=== PATIENT | female | born 1965 | race Caucasian/White ===

== ENCOUNTER 2021-11-18 12:55 | Emergency (ER) | payer SELFPAY ==
[~2021-11-18] VITALS: Ht 168 cm; Wt 61.0 kg
[2021-11-18 13:15] LABS: BASOPHILS # (AUTO) 0.1 10^3/uL (0.0-0.1); BASOPHILS % (AUTO) 1 % (0-10); EOSINOPHILS % (AUTO) 0 % (0-10); HEMATOCRIT 42 % (35-52); HEMOGLOBIN 14.8 g/dL (11.5-16.0); LYMPHOCYTES # (AUTO) 2.7 10^3/uL (1.0-4.0); LYMPHOCYTES % (AUTO) 26 % (12-44); MEAN CORPUSCULAR HEMOGLOBIN 31 pg (25-34); MEAN CORPUSCULAR HGB CONC 35 g/dL (32-36); MEAN CORPUSCULAR VOLUME 89 fL (80-99); MEAN PLATELET VOLUME 9.6 fL (9.0-12.2); MONOCYTES # (AUTO) 0.4 10^3/uL (0.0-1.0); MONOCYTES % (AUTO) 4 % (0-12); NEUTROPHILS # (AUTO) 7.3 10^3/uL (1.8-7.8); NEUTROPHILS % (AUTO) 69 % (42-75); PLATELET COUNT 211 10^3/uL (130-400); WHITE BLOOD COUNT 10.6 10^3/uL (4.3-11.0)
[2021-11-18 13:33] LABS: ALBUMIN 3.9 GM/DL (3.2-4.5); INR 0.9 (0.8-1.4); POTASSIUM 3.8 MMOL/L (3.6-5.0); PROTHROMBIN TIME PATIENT 12.1 SEC (12.2-14.7)
[2021-11-18 13:34] LABS: CALCIUM 9.1 MG/DL (8.5-10.1)
[2021-11-18 13:35] LABS: TOTAL PROTEIN 6.7 GM/DL (6.4-8.2)
[2021-11-18 13:37] LABS: BILIRUBIN,TOTAL 0.4 MG/DL (0.1-1.0)
[2021-11-18 13:39] LABS: CREATININE SERUM 0.78 MG/DL (0.60-1.30)
[2021-11-18 13:42] LABS: MAGNESIUM 2.1 MG/DL (1.6-2.4)
--- NOTE | 2021-11-18 13:47 | Diagnostic Imaging Report ---
INDICATION: Chest pain. Frontal chest obtained at 1:30 p.m. FINDINGS: Heart and mediastinal silhouette are normal. There is hyperinflation compatible with COPD with chronic appearing increased basilar markings. There are extensive bullous changes in both apices with surgical sutures over the right upper lobe medially. There is no acute consolidation or pleural fluid or pneumothorax. IMPRESSION: Severe COPD changes with severe biapical bullous disease. No acute process. Dictated by: Dictated on workstation # [id number]
[2021-11-18] MEDS ORDERED: KETOROLAC 30 MG/ML VIAL IVP ONE (14:00)
[2021-11-18] MEDS ORDERED: ASPIRIN 81 MG CHEW (CHILDREN'S ASA) PO ONE (14:00)
[2021-11-18] MEDS ORDERED: PROMETHAZINE INJ 25 MG/ML (PHENERGAN) AMP IVP ONE (14:00)
[2021-11-18] MEDS ORDERED: ONDANSETRON 4 MG/2 ML (SDV) Z0FRAN IVP ONE (14:00)
[2021-11-18] MEDS ORDERED: LACTATED RINGERS 1,000 ML IV ONE (14:00)
[2021-11-18] MEDS ORDERED: MECLIZINE 25 MG (ANTIVERT) TAB PO ONE (15:45)
[2021-11-18] MEDS ORDERED: DIAZEPAM INJ 10 MG/2 ML (VALIUM) SYR IVP ONE (18:30)
[2021-11-18] MEDS ORDERED: DIAZ5TAB PO (19:23)
[2021-11-18] MEDS ORDERED: ONDA4TAB11 SL (19:23)
--- NOTE | 2021-11-18 19:23 | ED Chest Pain ---
General Chief Complaint: Chest Pain Stated Complaint: CHEST PAIN Nursing Triage Note: PT TO RM 2 WITH WC WITH C/O CP SINCE 0600 THIS MORNING AND DIZZINESS SINCE 0300 THIS MORNING. PT STATES THE PAIN COMES AND GOES AND FEELS LIKE SOMEONE IS SITTING ON HER Source: patient Exam Limitations: no limitations History of Present Illness Date Seen by Provider: Nov 18, 2021 Allergies and Home Medications Allergies Coded Allergies: Penicillins (Verified Allergy, Unknown, 11/18/21) morphine (Verified Allergy, Unknown, 11/18/21) Past Gkbeady-Jndfmh-Exwjsv Hx Patient Social History Tobacco Use?: No Use of E-Cig and/or Vaping dev: No Substance use?: No Alcohol Use?: No Pt feels they are or have been: No Immunizations Up To Date Influenza Vaccine Up-to-Date: No; Not Current Physical Exam Vital Signs Vital Signs - First Documented 11/18/21 12:58 Temp 35.7 Pulse 89 Resp 18 B/P (MAP) 149/95 (113) Capillary Refill : Height, Weight, BMI Height: '" Weight: lbs. oz. kg; 21.00 BMI Method: Progress/Results/Core Measures Results/Orders Lab Results Laboratory Tests Test 11/18/21 13:03 11/18/21 15:05 Range/Units White Blood Count 10.6 4.3-11.0 10^3/uL Red Blood Count 4.72 3.80-5.11 10^6/uL Hemoglobin 14.8 11.5-16.0 g/dL Hematocrit 42 35-52 % Mean Corpuscular Volume 89 80-99 fL Mean Corpuscular Hemoglobin 31 25-34 pg Mean Corpuscular Hemoglobin Concent 35 32-36 g/dL Red Cell Distribution Width 12.1 10.0-14.5 % Platelet Count 211 130-400 10^3/uL Mean Platelet Volume 9.6 9.0-12.2 fL Immature Granulocyte % (Auto) 0 % Neutrophils (%) (Auto) 69 42-75 % Lymphocytes (%) (Auto) 26 12-44 % Monocytes (%) (Auto) 4 0-12 % Eosinophils (%) (Auto) 0 0-10 % Basophils (%) (Auto) 1 0-10 % Neutrophils # (Auto) 7.3 1.8-7.8 10^3/uL Lymphocytes # (Auto) 2.7 1.0-4.0 10^3/uL Monocytes # (Auto) 0.4 0.0-1.0 10^3/uL Eosinophils # (Auto) 0.0 0.0-0.3 10^3/uL Basophils # (Auto) 0.1 0.0-0.1 10^3/uL Immature Granulocyte # (Auto) 0.0 0.0-0.1 10^3/uL Prothrombin Time 12.1 L 12.2-14.7 SEC INR Comment 0.9 0.8-1.4 Activated Partial Thromboplast Time 32 24-35 SEC Sodium Level 143 135-145 MMOL/L Potassium Level 3.8 3.6-5.0 MMOL/L Chloride Level 110 H 98-107 MMOL/L Carbon Dioxide Level 23 21-32 MMOL/L Anion Gap 10 5-14 MMOL/L Blood Urea Nitrogen 16 7-18 MG/DL Creatinine 0.78 0.60-1.30 MG/DL Estimat Glomerular Filtration Rate 89 BUN/Creatinine Ratio 21 Glucose Level 121 H 70-105 MG/DL Calcium Level 9.1 8.5-10.1 MG/DL Corrected Calcium 9.2 8.5-10.1 MG/DL Magnesium Level 2.1 1.6-2.4 MG/DL Total Bilirubin 0.4 0.1-1.0 MG/DL Aspartate Amino Transf (AST/SGOT) 17 5-34 U/L Alanine Aminotransferase (ALT/SGPT) 18 0-55 U/L Alkaline Phosphatase 74 40-136 U/L Myoglobin 22.2 10.0-92.0 NG/ML Troponin I < 0.028 < 0.028 <0.028 NG/ML Total Protein 6.7 6.4-8.2 GM/DL Albumin 3.9 3.2-4.5 GM/DL My Orders Orders - OLENA PERRY MD Cbc With Automated Diff (11/18/21 12:57) Magnesium (11/18/21 12:57) Chest 1 View, Ap/Pa Only (11/18/21 12:57) Ekg Tracing (11/18/21 12:57) Comprehensive Metabolic Panel (11/18/21 12:57) Myoglobin Serum (11/18/21 12:57) Protime With Inr (11/18/21 12:57) Partial Thromboplastin Time (11/18/21 12:57) O2 (11/18/21 12:57) Monitor-Rhythm Ecg Trace Only (11/18/21 12:57) Ed Iv/Invasive Line Start (11/18/21 12:57) Troponin I Jessica (11/18/21 12:57) Lipid Panel (11/19/21 06:00) Aspirin Chewable Tablet (Baby Aspirin Ch (11/18/21 14:00) Ondansetron Injection (Zofran Injectio (11/18/21 14:00) Promethazine Injection (Phenergan Injec (11/18/21 14:00) Lactated Ringers (Lr 1000 Ml Iv Solution (11/18/21 14:00) Ketorolac Injection (Toradol Injection) (11/18/21 14:00) Troponin I Jessica (11/18/21 15:05) Meclizine Tablet (Antivert Tablet) (11/18/21 15:45) Diazepam Injection (Valium Injection) (11/18/21 18:30) Medications Given in ED Current Medications Medications Dose Ordered Sig/Jessica Route Start Time Stop Time Status Last Admin Dose Admin Aspirin 324 mg ONCE ONCE PO 11/18/21 14:00 11/18/21 14:02 DC 11/18/21 14:15 324 MG Diazepam 5 mg ONCE ONCE IVP 11/18/21 18:30 11/18/21 18:31 DC 11/18/21 18:29 5 MG Ketorolac Tromethamine 15 mg ONCE ONCE IVP 11/18/21 14:00 11/18/21 14:02 DC 11/18/21 14:15 15 MG Lactated Ringer's 1,000 ml @ 0 mls/hr Q0M ONCE IV 11/18/21 14:00 11/18/21 14:02 DC 11/18/21 14:15 1,000 MLS/HR Meclizine HCl 25 mg ONCE ONCE PO 11/18/21 15:45 11/18/21 15:46 DC 11/18/21 15:49 25 MG Ondansetron HCl 4 mg ONCE ONCE IVP 11/18/21 14:00 11/18/21 14:02 DC 11/18/21 14:15 4 MG Promethazine HCl 25 mg ONCE ONCE IVP 11/18/21 14:00 11/18/21 14:02 DC 11/18/21 14:15 25 MG Vital Signs/I&O 11/18/21 12:58 Temp 35.7 Pulse 89 Resp 18 B/P (MAP) 149/95 (113) Blood Pressure Mean: 113 Initial ECG Impression Date: Nov 18, 2021 Initial ECG Impression Time: 13:06 Initial ECG Rate: 89 Initial ECG Rhythm: Normal Sinus Initial ECG Intervals: Normal Comment Normal sinus rhythm with no ST elevation or depression. No abnormal intervals or axis deviation. Departure Impression Primary Impression: Vertigo Additional Impressions: Atypical chest pain Migraine headache Qualified Codes: G43.109 - Migraine with aura, not intractable, without status migrainosus Disposition: HOME, SELF-CARE Condition: Stable Departure-Patient Inst. Decision time for Depature: 19:18 Referrals: NO,LOCAL PHYSICIAN (PCP/Family) Primary Care Physician Patient Instructions: Vertigo ED, Chest Pain (DC), Migraines in Adults Add. Discharge Instructions: Establish with and follow-up with a primary care provider soon as possible. Rise and walk with extreme caution until your vertigo has completely resolved. Return to the emergency room for further evaluation and treatment promptly if you develop additional symptoms such as weakness of a body part, confusion, difficulty speaking, vision changes, etc. You may use your usual medications for migraine. Use Zofran (ondansetron) as prescribed for nausea and vomiting. Use Valium as prescribed for severe dizziness. Valium may cause significant drowsiness so use with caution. Drink plenty of clear liquids to stay well-hydrated. For additional treatment of dizziness, you may try meclizine qced-vas-claxrec. Do not use meclizine in combination with Valium as they both may cause drowsiness and the effects may exacerbate each other. For musculoskeletal pain including chest wall pain you may take Tylenol (acetaminophen) up to 1000 mg every 6 hours as needed and/or ibuprofen up to 600 mg every 6 hours as needed. Return to care if you have any other concerning health problems that warrant urgent attention. Also return if you have further episodes of chest pain that are not relieved by Tylenol and/or ibuprofen All discharge instructions reviewed with patient and/or family. Voiced understanding. Scripts Ondansetron (Ondansetron Odt) 4 Mg Tab.rapdis 4 MG SL Q4H PRN for NAUSEA/VOMITING, #10 TAB Prov: OLENA PERRY MD 11/18/21 Diazepam (Valium) 5 Mg Tablet 5 MG PO Q8H PRN for DIZZINESS, #4 TAB Prov: OLENA PERRY MD 11/18/21 OLENA PERRY MD Nov 18, 2021 19:23
[2021-11-18 19:38] VITALS: BP 109/55
== END 2021-11-18 19:38 | disposition home or self-care (01) ==
LOC: EDUNIT# 12:55 → ER 12:57
DX: R07.89 Other chest pain (principal); R42 Dizziness and giddiness; G43.109 Migraine with aura, not intractable, without status migrainosus
CPT/HCPCS: 36415; 71045; 80053; 83735; 83874; 84484; 85025; 85610; 85730; 93005; 93041

== ENCOUNTER 2021-11-19 10:27 | Observation (INO) | payer SELFPAY ==
[~2021-11-19] VITALS: Ht 172.7 cm; Wt 59.0 kg
[~2021-11-19 10:27] MED LIST: DIAZ5TAB PO; ONDA4TAB11 SL
--- NOTE | 2021-11-19 11:05 | Diagnostic Imaging Report ---
INDICATION: Chest pain and shortness of breath. Time of Exam: 11:01 AM Correlation is made with prior chest 1 day earlier. Heart size normal. Lungs are hyperinflated. There are emphysematous changes throughout both lungs. No infiltrate or effusion is seen. There is no pneumothorax. IMPRESSION: Severe changes of COPD, stable since yesterday. No acute abnormality is detected. Dictated by: Dictated on workstation # [id number]
[2021-11-19 11:25] LABS: BASOPHILS % (AUTO) 0 % (0-10); EOSINOPHILS % (AUTO) 0 % (0-10); HEMATOCRIT 41 % (35-52); HEMOGLOBIN 14.6 g/dL (11.5-16.0); LYMPHOCYTES # (AUTO) 1.1 10^3/uL (1.0-4.0); LYMPHOCYTES % (AUTO) 12 % (12-44); MEAN CORPUSCULAR HEMOGLOBIN 32 pg (25-34); MEAN CORPUSCULAR HGB CONC 35 g/dL (32-36); MEAN CORPUSCULAR VOLUME 90 fL (80-99); MEAN PLATELET VOLUME 9.8 fL (9.0-12.2); MONOCYTES # (AUTO) 0.2 10^3/uL (0.0-1.0); MONOCYTES % (AUTO) 2 % (0-12); NEUTROPHILS # (AUTO) 7.4 10^3/uL (1.8-7.8); NEUTROPHILS % (AUTO) 85 % (42-75); PLATELET COUNT 180 10^3/uL (130-400); WHITE BLOOD COUNT 8.7 10^3/uL (4.3-11.0)
[2021-11-19 11:33] LABS: ALBUMIN 3.8 GM/DL (3.2-4.5); POTASSIUM 3.8 MMOL/L (3.6-5.0)
[2021-11-19 11:36] LABS: TOTAL PROTEIN 6.4 GM/DL (6.4-8.2)
[2021-11-19 11:38] LABS: BILIRUBIN,TOTAL 0.4 MG/DL (0.1-1.0)
[2021-11-19 11:39] LABS: CREATININE SERUM 0.76 MG/DL (0.60-1.30)
[2021-11-19 11:42] LABS: MAGNESIUM 1.9 MG/DL (1.6-2.4)
[2021-11-19 11:54] LABS: INR 0.9 (0.8-1.4); PROTHROMBIN TIME PATIENT 12.8 SEC (12.2-14.7)
[2021-11-19] MEDS ORDERED: fentaNYL INJ 100 MCG/2 ML AMP IVP ONE ×2 (12:45→15:30)
[2021-11-19] MEDS ORDERED: LACTATED RINGERS 1,000 ML IV ONE ×3 (12:45→20:24)
[2021-11-19] MEDS ORDERED: ONDANSETRON 4 MG/2 ML (SDV) Z0FRAN IVP ONE (12:45)
[2021-11-19] MEDS ORDERED: PROMETHAZINE INJ 25 MG/ML (PHENERGAN) AMP IVP ONE (12:45)
[2021-11-19] MEDS ORDERED: NS 100 ML (IVPB) BAG IV ONE ×2 (13:45→16:45)
[2021-11-19] MEDS ORDERED: CATHETER FLUSH 10 ML SYR IV PRN (13:45)
[2021-11-19] MEDS ORDERED: IOHEXOL 350 MG/ML 100 ML (OMNIPAQUE 350) VIAL IV ONE ×2 (13:45→16:45)
[2021-11-19] MEDS ORDERED: HOLD METFORMIN - RECEIVED CONTRAST 20 ML VIAL IV SCH (13:45)
--- NOTE | 2021-11-19 14:16 | Diagnostic Imaging Report ---
EXAMINATION: CT angiography of the chest. TECHNIQUE: Contrast enhanced thin section helical images were obtained through the chest with intravenous contrast timed for the optimal opacification of the arterial structures per CTA protocol. Post-processing, reconstructions and interpretation of angiographic images of the vessels was performed. 3D MIP reconstructions were performed and reviewed. All CT scans use one or more of the following dose optimizing techniques: Automated exposure control, MA and/or KvP adjustment based on a patient size and exam type, or iterative reconstruction. HISTORY: Shortness of breath and chest pain. COMPARISON: None available. FINDINGS: There is no pulmonary embolism. There is no edema or pneumonia. No pleural effusion. No pneumothorax. No suspicious nodules. Lungs are severely emphysematous. There is no axillary or supraclavicular lymphadenopathy. There is no mediastinal lymphadenopathy. Heart size is normal. There are mild coronary artery calcifications. No pericardial effusion. Aorta is normal in caliber. Limited views of the upper abdomen are unremarkable. There are no suspicious osseous lesions. IMPRESSION: 1. No pulmonary embolism. Dictated by: Dictated on workstation # [id number]
[2021-11-19 16:59] LABS: BILIRUBIN,URINE NEGATIVE (NEGATIVE); CLARITY,URINE CLEAR; COLOR,URINE YELLOW; GLUCOSE, URINE (UA) NEGATIVE (NEGATIVE); KETONES,URINE 2+ (NEGATIVE); LEUKOCYTE ESTERASE ,URINE TRACE (NEGATIVE); NITRITE,URINE NEGATIVE (NEGATIVE); PH,URINE 6.5 (5-9); PROTEIN,URINE NEGATIVE (NEGATIVE)
[2021-11-19 17:05] LABS: BACTERIA,URINE NEGATIVE /HPF; RBC,URINE 0-2 /HPF
--- NOTE | 2021-11-19 17:10 | Diagnostic Imaging Report ---
PROCEDURE: CT angiography of the head and CT angiography of the neck with and without contrast. TECHNIQUE: Contiguous noncontrast images were obtained from the skull base through the vertex. After intravenous contrast administration, helical CT angiography of the neck was performed. Source data was reformatted into 3D MIP projections. Delayed post contrast acquisition was also obtained. Auto Exposure Controls were utilized during the CT exam to meet ALARA standards for radiation dose reduction. INDICATION: Headache and dizziness. Noncontrast CT of the head demonstrates some residual intravascular contrast in the patient's prior CTA of the chest. There are no findings of acute intracranial hemorrhage. There is no intracranial mass effect or shift. There is no hydrocephalus. There are no findings of territorial loss of flores-white differentiation or vasogenic edema. The basilar cisterns are patent. Posterior fossa appears unremarkable. The mastoid air cells appear clear. The paranasal sinuses are clear. The orbital contents are unremarkable. The CT angiogram demonstrates no findings of aortic arch dissection. There is mild plaquing within the aortic arch with mild narrowing at the origin of the left subclavian. There is no high-grade stenosis at the origins of vessels arising from the aortic arch. The vertebral artery origins are also patent. Common carotid arteries demonstrate no significant stenosis. There is no stenosis at the carotid bifurcations by NASCET criteria. Cervical segment of the internal carotid arteries are widely patent without luminal irregularity or stenosis. The vertebral arteries throughout the neck also appear widely patent. There is no caliber change or dissection. Intracranially there is appropriate flow within the bilateral internal carotid arteries with patent flow to the carotid terminus. There is normal flow within the M1 segment of the middle cerebral arteries with no findings of an M2 branch occlusion. The anterior cerebral arteries appear patent. Within the posterior circulation both of the vertebral arteries are patent. There are patent bilateral posterior inferior cerebellar arteries. The basilar is patent. There is flow within the superior cerebellar artery. The left [employer] is unremarkable. There is a origin of the right [employer]. There are no findings of intracranial aneurysm formation. The dural venous sinuses appear patent. Postcontrast CT of the head demonstrates no evidence of pathologic intracranial enhancement. The soft tissues of the neck demonstrate no acute process. Lung apices demonstrate features of centrilobular and paraseptal emphysema. There are degenerative features within the cervical spine without findings of an acute or suspicious osseous abnormality. IMPRESSION: 1. No CT evidence of an acute intracranial abnormality. 2. No findings of intracranial large vessel occlusion or high-grade intracranial stenosis. 3. No findings of intracranial aneurysm formation. 4. The dural venous sinuses are patent. 5. No pathologic intracranial enhancement. 6. No significant stenosis or dissection within the neck. 7. Pulmonary emphysema. Dictated by: Dictated on workstation # [id number]
[2021-11-19] MEDS ORDERED: KETOROLAC 30 MG/ML VIAL IVP ONE (18:30)
--- NOTE | 2021-11-19 18:32 | ED General ---
General Chief Complaint: Chest Pain Stated Complaint: CHEST PAIN - SOA Nursing Triage Note: PT AMBULATE TO ROOM ROOM 02 WITH C/O CHEST PAIN, N/V STARTING YESTERDAY. PT WAS SEEN IN THIS ED FOR SAME C/O YESTERDAY. PT STATES SHE WAS TOLD TO COME BACK IF PAIN WORSENED. Source of Information: Patient, Old Records Exam Limitations: No Limitations History of Present Illness Date Seen by Provider: Nov 19, 2021 Time Seen by Provider: 10:38 Initial Comments This 55-year-old woman presents to the emergency room with intractable vertigo and intermittent chest pain. Vertigo was accompanied by headache. She was seen in this ER last night and was difficult to treat. Therapies did not seem to improve her symptoms much. We attempted an Shayan maneuver but she was not able to tolerate it. She was ultimately discharged home after discussing options. When she woke up this morning symptoms returned in a severe manner. She was unable to walk due to dizziness. She presents to the ER requesting treatment for the symptoms and admission for supportive care. Vertigo is triggered by movement of the head and rising. It is fatigable. Chest pain is in the left chest and radiates toward the back. She does have some tenderness of the chest on palpation. Vertigo is causing intolerable nausea. Allergies and Home Medications Allergies Coded Allergies: Penicillins (Verified Allergy, Unknown, 11/18/21) morphine (Verified Allergy, Unknown, 11/18/21) Patient Home Medication List Home Medication List Reviewed: Yes Diazepam (Valium) 5 Mg Tablet, 5 MG PO Q8H PRN for DIZZINESS Prescribed by: OLENA BABCOCK on 11/18/211923 Ondansetron (Ondansetron Odt) 4 Mg Tab.rapdis, 4 MG SL Q4H PRN for NAUSEA/VOM ITING Prescribed by: OLENA BABCOCK on 11/18/211922 Review of Systems Review of Systems Constitutional: no symptoms reported EENTM: no symptoms reported Respiratory: other (Pain with inspiration) Cardiovascular: see HPI Gastrointestinal: see HPI Genitourinary: no symptoms reported Musculoskeletal: see HPI Skin: no symptoms reported Psychiatric/Neurological: See HPI Hematologic/Lymphatic: No Symptoms Reported Immunological/Allergic: no symptoms reported Past Czjjsfy-Kskyee-Lvbpfa Hx Patient Social History Tobacco Use?: No Smoking Status: Never a Smoker Smokeless Tobacco Frequency: Never a User Use of E-Cig and/or Vaping dev: No Use of E-Cig and/or Vaping Kvng: Never a User Substance use?: No Alcohol Use?: No Pt feels they are or have been: No Past Medical History Surgeries: Yes (Thoracotomy due to pneumothorax) Tubal Ligation Respiratory: Yes (History of pneumothorax) Cardiac: No Neurological: Yes Headaches /Migraines : No Genitourinary: No Gastrointestinal: No Musculoskeletal: No Endocrine: No HEENT: No Cancer: No Psychosocial: No Integumentary: No Physical Exam Vital Signs Vital Signs - First Documented 11/19/21 10:30 Temp 35.1 Pulse 75 Resp 16 B/P (MAP) 139/72 (94) O2 Delivery Room Air Capillary Refill : Less Than 3 Seconds Height, Weight, BMI Height: '" Weight: lbs. oz. kg; 19.00 BMI Method: General Appearance: WD/WN, Mild Distress, Thin HEENT: PERRL/EOMI, TMs Normal, Normal ENT Inspection, Pharynx Normal Neck: Normal Inspection; No Carotid Bruit, No JVD Respiratory: Lungs Clear, Normal Breath Sounds, No Accessory Muscle Use Cardiovascular: Regular Rate, Rhythm, No Edema, No Murmur, Normal Peripheral Pulses, Other (Left upper anterior chest tender to palpation) Gastrointestinal: Normal Bowel Sounds, Non Tender, Soft Extremity: Normal Inspection, Non Tender, No Pedal Edema Neurologic/Psychiatric: Alert, Oriented x3, No Motor/Sensory Deficits, Normal Mood/Affect, 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, Other (Intense vertigo with arising or head position changes) Skin: Normal Color, Warm/Dry Progress/Results/Core Measures Suspected Sepsis SIRS Temperature: Pulse: 75 Respiratory Rate: 16 Laboratory Tests 11/19/21 11:08: White Blood Count 8.7 Blood Pressure 139 /72 Mean: 94 Laboratory Tests 11/19/21 11:08: Creatinine 0.76, INR Comment 0.9, Platelet Count 180, Total Bilirubin 0.4 Results/Orders Lab Results Laboratory Tests Test 11/19/21 11:08 11/19/21 12:51 11/19/21 16:32 Range/Units White Blood Count 8.7 4.3-11.0 10^3/uL Red Blood Count 4.58 3.80-5.11 10^6/uL Hemoglobin 14.6 11.5-16.0 g/dL Hematocrit 41 35-52 % Mean Corpuscular Volume 90 80-99 fL Mean Corpuscular Hemoglobin 32 25-34 pg Mean Corpuscular Hemoglobin Concent 35 32-36 g/dL Red Cell Distribution Width 12.1 10.0-14.5 % Platelet Count 180 130-400 10^3/uL Mean Platelet Volume 9.8 9.0-12.2 fL Immature Granulocyte % (Auto) 0 % Neutrophils (%) (Auto) 85 H 42-75 % Lymphocytes (%) (Auto) 12 12-44 % Monocytes (%) (Auto) 2 0-12 % Eosinophils (%) (Auto) 0 0-10 % Basophils (%) (Auto) 0 0-10 % Neutrophils # (Auto) 7.4 1.8-7.8 10^3/uL Lymphocytes # (Auto) 1.1 1.0-4.0 10^3/uL Monocytes # (Auto) 0.2 0.0-1.0 10^3/uL Eosinophils # (Auto) 0.0 0.0-0.3 10^3/uL Basophils # (Auto) 0.0 0.0-0.1 10^3/uL Immature Granulocyte # (Auto) 0.0 0.0-0.1 10^3/uL Prothrombin Time 12.8 12.2-14.7 SEC INR Comment 0.9 0.8-1.4 Activated Partial Thromboplast Time 32 24-35 SEC D-Dimer 0.76 H 0.00-0.49 UG/ML Sodium Level 143 135-145 MMOL/L Potassium Level 3.8 3.6-5.0 MMOL/L Chloride Level 108 H 98-107 MMOL/L Carbon Dioxide Level 23 21-32 MMOL/L Anion Gap 12 5-14 MMOL/L Blood Urea Nitrogen 15 7-18 MG/DL Creatinine 0.76 0.60-1.30 MG/DL Estimat Glomerular Filtration Rate 91 BUN/Creatinine Ratio 20 Glucose Level 130 H 70-105 MG/DL Calcium Level 9.0 8.5-10.1 MG/DL Corrected Calcium 9.2 8.5-10.1 MG/DL Magnesium Level 1.9 1.6-2.4 MG/DL Total Bilirubin 0.4 0.1-1.0 MG/DL Aspartate Amino Transf (AST/SGOT) 18 5-34 U/L Alanine Aminotransferase (ALT/SGPT) 18 0-55 U/L Alkaline Phosphatase 72 40-136 U/L Myoglobin 21.6 10.0-92.0 NG/ML Troponin I < 0.028 <0.028 NG/ML Total Protein 6.4 6.4-8.2 GM/DL Albumin 3.8 3.2-4.5 GM/DL Influenza Type A (RT-PCR) Not Detected Not Detecte Influenza Type B (RT-PCR) Not Detected Not Detecte SARS-CoV-2 RNA (RT-PCR) Not Detected Not Detecte Urine Color YELLOW Urine Clarity CLEAR Urine pH 6.5 5-9 Urine Specific [place] 1.010 L 1.016-1.022 Urine Protein NEGATIVE NEGATIVE Urine Glucose (UA) NEGATIVE NEGATIVE Urine Ketones 2+ H NEGATIVE Urine Nitrite NEGATIVE NEGATIVE Urine Bilirubin NEGATIVE NEGATIVE Urine Urobilinogen 0.2 < = 1.0 MG/DL Urine Leukocyte Esterase TRACE H NEGATIVE Urine RBC (Auto) TRACE-I H NEGATIVE Urine RBC 0-2 /HPF Urine WBC 2-5 /HPF Urine Squamous Epithelial Cells 2-5 /HPF Urine Renal Epithelial Cells NONE /HPF Urine Crystals NONE /LPF Urine Bacteria NEGATIVE /HPF Urine Casts NONE /LPF Urine Mucus NEGATIVE /LPF Urine Culture Indicated NO My Orders Orders - OLENA PERRY MD Cbc With Automated Diff (11/19/21 10:38) Magnesium (11/19/21 10:38) Chest 1 View, Ap/Pa Only (11/19/21 10:38) Ekg Tracing (11/19/21 10:38) Comprehensive Metabolic Panel (11/19/21 10:38) Myoglobin Serum (11/19/21 10:38) Protime With Inr (11/19/21 10:38) Partial Thromboplastin Time (11/19/21 10:38) O2 (11/19/21 10:38) Monitor-Rhythm Ecg Trace Only (11/19/21 10:38) Lipid Panel (11/20/21 06:00) Ed Iv/Invasive Line Start (11/19/21 10:38) Fibrin Degradation Products (11/19/21 10:38) Troponin I Jessica (11/19/21 10:38) Ekg Tracing (11/19/21 10:38) Ct Angio Chest W (11/19/21 12:11) Lactated Ringers (Lr 1000 Ml Iv Solution (11/19/21 12:45) Ondansetron Injection (Zofran Injectio (11/19/21 12:45) Promethazine Injection (Phenergan Injec (11/19/21 12:45) Fentanyl Inj (Sublimaze Injection) (11/19/21 12:45) Covid 19 Inhouse Test (11/19/21 12:45) Influenza A And B By Pcr (11/19/21 12:45) Iohexol Injection (Omnipaque 350 Mg/Ml 1 (11/19/21 13:45) Received Contrast (Hold Metformin- Contr (11/19/21 13:45) Sodium Chloride Flush (Catheter Flush Sy (11/19/21 13:45) Ns (Ivpb) (Sodium Chloride 0.9% Ivpb Bag (11/19/21 13:45) Lactated Ringers (Lr 1000 Ml Iv Solution (11/19/21 15:30) Ct Angio Head/Neck (11/19/21 15:19) Fentanyl Inj (Sublimaze Injection) (11/19/21 15:30) Iohexol Injection (Omnipaque 350 Mg/Ml 1 (11/19/21 16:45) Ns (Ivpb) (Sodium Chloride 0.9% Ivpb Bag (11/19/21 16:45) Ua Culture If Indicated (11/19/21 16:35) Ketorolac Injection (Toradol Injection) (11/19/21 18:30) Medications Given in ED Current Medications Medications Dose Ordered Sig/Jessica Route Start Time Stop Time Status Last Admin Dose Admin Fentanyl Citrate 75 mcg ONCE ONCE IVP 11/19/21 12:45 11/19/21 12:46 DC 11/19/21 12:47 75 MCG Iohexol 100 ml ONCE ONCE IV 11/19/21 13:45 11/19/21 13:46 DC 11/19/21 13:50 59 ML Iohexol 100 ml ONCE ONCE IV 11/19/21 16:45 11/19/21 16:46 DC 11/19/21 16:35 75 ML Lactated Ringer's 1,000 ml @ 0 mls/hr Q0M ONCE IV 11/19/21 12:45 11/19/21 12:46 DC 11/19/21 12:42 999 MLS/HR Lactated Ringer's 1,000 ml @ 0 mls/hr Q0M ONCE IV 11/19/21 15:30 11/19/21 15:31 DC 11/19/21 15: 1,000 MLS/HR Ondansetron HCl 8 mg ONCE ONCE IVP 11/19/21 12:45 11/19/21 12:46 DC 11/19/21 12:42 8 MG Promethazine HCl 25 mg ONCE ONCE IVP 11/19/21 12:45 11/19/21 12:46 DC 11/19/21 12:42 25 MG Sodium Chloride 10 ml NEEDED PRN IV 11/19/21 13:45 11/19/21 21:28 DC 11/19/21 13:50 10 ML Sodium Chloride 100 ml ONCE ONCE IV 11/19/21 13:45 11/19/21 13:46 DC 11/19/21 13:50 80 ML Sodium Chloride 100 ml ONCE ONCE IV 11/19/21 16:45 11/19/21 16:46 DC 11/19/21 16:35 80 ML Vital Signs/I&O 11/19/21 10:30 Temp 35.1 Pulse 75 Resp 16 B/P (MAP) 139/72 (94) O2 Delivery Room Air Capillary Refill : Less Than 3 Seconds Blood Pressure Mean: 94 Progress Note : Progress Note Patient complained of recurrent chest pain, headache, and severe debilitating vertigo upon waking this morning. Chest pain work-up again was pursued. During this chest pain work-up D-dimer was added. It was modestly elevated. CT angiogram of the chest was obtained demonstrating no pulmonary embolus. Chest pain seemed more pleuritic and or musculoskeletal in nature by history and by exam with reproduction on palpation. Patient has had 3 troponins in the last 24 hours that were all negative. EKG was negative for ischemia. Due to the intractable vertigo and recurrent headache, CT angiogram of the head and neck was also obtained. There was need to separate these 2 tests in time to allow clearing of contrast. CT angiogram of the head and neck was also unremarkable. Patient was treated with Zofran, Phenergan, fentanyl, and IV fluids. She was able to rest but still complained of significant dizziness with any movement and rather intense headache. She received additional fentanyl. After clearing her CT head, Toradol was then administered. Patient does not believe she can function at home in her current condition as she is unable to keep her balance for ambulation due to severe vertigo. She requests admission for observation and symptomatic control until she is able to perform her ADLs again. I discussed CODE STATUS and she requests full code. Patient was screened for influenza and COVID-19 which were both negative. ECG Initial ECG Impression Date: Nov 19, 2021 Initial ECG Impression Time: 10:35 Initial ECG Rate: 79 Initial ECG Rhythm: Normal Sinus Initial ECG Intervals: Normal Initial ECG Impression: Normal Comment Normal sinus rhythm with no diagnostic ST elevation or depression. No abnormal intervals or axis deviation. Diagnostic Imaging Diagonstic Imaging: Xray Plain Films/CT/US/NM/MRI: chest Comments NAME: KEZIA BOLIVAR [facility] REC#: [id number] PT STATUS: REG ER : 1965 PHYSICIAN: OLENA PERRY MD ADMIT DATE: 11/19/21/ER Signed Date of Exam:11/19/21 CHEST 1 VIEW, AP/PA ONLY INDICATION: Chest pain and shortness of breath. Time of Exam: 11:01 AM Correlation is made with prior chest 1 day earlier. Heart size normal. Lungs are hyperinflated. There are emphysematous changes throughout both lungs. No infiltrate or effusion is seen. There is no pneumothorax. IMPRESSION: Severe changes of COPD, stable since yesterday. No acute abnormality is detected. Dictated by: Dictated on workstation # [id number] Dict: 11/19/21 1103 Trans: 11/19/21 1607 [facility] [id number] Interpreted by: DIANE HINOJOSA MD Electronically signed by: DIANE HINOJOSA MD 11/19/21 1607 Diagonstic Imaging: CT Plain Films/CT/US/NM/MRI: chest Comments NAME: KEZIA BOLIVAR [facility] REC#: [id number] PT STATUS: REG ER : 1965 PHYSICIAN: OLENA PERRY MD ADMIT DATE: 11/19/21/ER Signed Date of Exam:11/19/21 CT ANGIO CHEST W EXAMINATION: CT angiography of the chest. TECHNIQUE: Contrast enhanced thin section helical images were obtained through the chest with intravenous contrast timed for the optimal opacification of the arterial structures per CTA protocol. Post-processing, reconstructions and interpretation of angiographic images of the vessels was performed. 3D MIP reconstructions were performed and reviewed. All CT scans use one or more of the following dose optimizing techniques: Automated exposure control, MA and/or KvP adjustment based on a patient size and exam type, or iterative reconstruction. HISTORY: Shortness of breath and chest pain. COMPARISON: None available. FINDINGS: There is no pulmonary embolism. There is no edema or pneumonia. No pleural effusion. No pneumothorax. No suspicious nodules. Lungs are severely emphysematous. There is no axillary or supraclavicular lymphadenopathy. There is no mediastinal lymphadenopathy. Heart size is normal. There are mild coronary artery calcifications. No pericardial effusion. Aorta is normal in caliber. Limited views of the upper abdomen are unremarkable. There are no suspicious osseous lesions. IMPRESSION: 1. No pulmonary embolism. Dictated by: Dictated on workstation # [id number] Dict: 11/19/21 1412 Trans: 11/19/21 1658 [id number] Interpreted by: AISHA PETERSON MD Electronically signed by: AISHA PETERSON MD 11/19/21 1658 Diagonstic Imaging: CT Plain Films/CT/US/NM/MRI: other (Angiogram head and neck) Comments NAME: KEZIA BOLIVAR [facility] REC#: [id number] PT STATUS: REG ER : 1965 PHYSICIAN: OLENA PERRY MD ADMIT DATE: 11/19/21/ER Signed Date of Exam:11/19/21 CT ANGIO HEAD/NECK PROCEDURE: CT angiography of the head and CT angiography of the neck with and without contrast. TECHNIQUE: Contiguous noncontrast images were obtained from the skull base through the vertex. After intravenous contrast administration, helical CT angiography of the neck was performed. Source data was reformatted into 3D MIP projections. Delayed post contrast acquisition was also obtained. Auto Exposure Controls were utilized during the CT exam to meet ALARA standards for radiation dose reduction. INDICATION: Headache and dizziness. Noncontrast CT of the head demonstrates some residual intravascular contrast in the patient's prior CTA of the chest. There are no findings of acute intracranial hemorrhage. There is no intracranial mass effect or shift. There is no hydrocephalus. There are no findings of territorial loss of flores-white differentiation or vasogenic edema. The basilar cisterns are patent. Posterior fossa appears unremarkable. The mastoid air cells appear clear. The paranasal sinuses are clear. The orbital contents are unremarkable. The CT angiogram demonstrates no findings of aortic arch dissection. There is mild plaquing within the aortic arch with mild narrowing at the origin of the left subclavian. There is no high-grade stenosis at the origins of vessels arising from the aortic arch. The vertebral artery origins are also patent. Common carotid arteries demonstrate no significant stenosis. There is no stenosis at the carotid bifurcations by NASCET criteria. Cervical segment of the internal carotid arteries are widely patent without luminal irregularity or stenosis. The vertebral arteries throughout the neck also appear widely patent. There is no caliber change or dissection. Intracranially there is appropriate flow within the bilateral internal carotid arteries with patent flow to the carotid terminus. There is normal flow within the M1 segment of the middle cerebral arteries with no findings of an M2 branch occlusion. The anterior cerebral arteries appear patent. Within the posterior circulation both of the vertebral arteries are patent. There are patent bilateral posterior inferior cerebellar arteries. The basilar is patent. There is flow within the superior cerebellar artery. The left CLIENT SERVICES ASSISTANT is unremarkable. There is a origin of the right CLIENT SERVICES ASSISTANT. There are no findings of intracranial aneurysm formation. The dural venous sinuses appear patent. Postcontrast CT of the head demonstrates no evidence of pathologic intracranial enhancement. The soft tissues of the neck demonstrate no acute process. Lung apices demonstrate features of centrilobular and paraseptal emphysema. There are degenerative features within the cervical spine without findings of an acute or suspicious osseous abnormality. IMPRESSION: 1. No CT evidence of an acute intracranial abnormality. 2. No findings of intracranial large vessel occlusion or high-grade intracranial stenosis. 3. No findings of intracranial aneurysm formation. 4. The dural venous sinuses are patent. 5. No pathologic intracranial enhancement. 6. No significant stenosis or dissection within the neck. 7. Pulmonary emphysema. Dictated by: Dictated on workstation # [id number] Dict: 11/19/21 1646 Trans: 11/19/21 7432 [facility] [id number] Interpreted by: ADDIE RANDALL MD Electronically signed by: ADDIE RANDALL MD 11/19/21 1842 Departure Communication (Admissions) Time/Spoke to Admitting Phy: 18:22 Dr. Monson Impression Primary Impression: Vertigo Additional Impressions: Atypical chest pain Acute headache Qualified Codes: R51.9 - Headache, unspecified Nausea & vomiting Qualified Codes: R11.2 - Nausea with vomiting, unspecified Disposition: ADMITTED INPATIENT Condition: Stable Admissions Decision to Admit Reason: Admit from ER (General) Decision to Admit/Date: Nov 19, 2021 Time/Decision to Admit Time: 18:22 Departure-Patient Inst. Referrals: NO,LOCAL PHYSICIAN (PCP/Family) Primary Care Physician OLENA PERRY MD Nov 19, 2021 18:32
[2021-11-19 20:07] VITALS: BP 120/57
[2021-11-19] MEDS ORDERED: ONDANSETRON 4 MG/2 ML (SDV) Z0FRAN IV PRN (21:30)
[2021-11-19] MEDS ORDERED: PROMETHAZINE INJ 25 MG/ML (PHENERGAN) AMP IVP PRN (21:30)
[2021-11-19] MEDS ORDERED: KETOROLAC 15 MG/ML VIAL IV PRN (21:30)
[2021-11-19] MEDS ORDERED: fentaNYL INJ 100 MCG/2 ML AMP IV PRN (21:45)
[2021-11-19] MEDS ORDERED: MECLIZINE 25 MG (ANTIVERT) TAB PO PRN (21:45)
[2021-11-19] MEDS: LACTATED RINGERS 1,000 ML IV SCH (21:52)
[2021-11-19 23:45] VITALS: BP 105/53
[2021-11-20 03:40] VITALS: BP 118/57
[2021-11-20] MEDS: LACTATED RINGERS 1,000 ML IV SCH ×3 (04:16→21:29)
[2021-11-20 05:49] LABS: POTASSIUM 3.4 MMOL/L (3.6-5.0)
[2021-11-20 05:50] LABS: CALCIUM 8.2 MG/DL (8.5-10.1)
[2021-11-20 05:55] LABS: CREATININE SERUM 0.69 MG/DL (0.60-1.30)
[2021-11-20 07:28] VITALS: BP 123/56
--- NOTE | 2021-11-20 10:55 | History & Physical-Hospitalist ---
History of Present Illness HPI/Chief Complaint Patient is a 55-year-old female with no past medical history who presented to the emergency department due to dizziness. She states it started this week and actually was seen in the emergency room the day before yesterday as well. She has had worsening dizziness with nausea and vomiting. She reports the room is spinning. She has never had anything like this in the past. She does have a little bit of a cough but does not claim any prodromal cold-like illness. She was offered admission on her first ER visit but declined. She continued to worsen and return to the ER yesterday. Extensive work-up was done in the emergency department including head imaging without acute findings. She was still unable to ambulate so was admitted overnight for observation. This morning she reports feeling a little bit better so long as she is laying in bed but when she got to the bathroom earlier she got very dizzy again. She is concerned about her ability to return home as she lives at home alone and her bathroom is all the way in the back of her house. Source: patient Date Seen 11/20/21 Time Seen by a Provider: 10:46 Attending Physician No,Local Physician PCP Admitting Physician: Leobardo Monson MD Attending Physician: Leobardo Monson MD Referring Physician Date of Admission Nov 19, 2021 at 18:22 Home Medications & Allergies Home Medications Reviewed patient Home Medication Reconciliation performed by pharmacy medication reconciliations training technician and/or nursing. Patients Allergies have been reviewed. Allergies Allergies Coded Allergies Penicillins (Verified Allergy, Unknown, 11/18/21) morphine (Verified Allergy, Unknown, 11/18/21) Past Ieomelt-Gzzhak-Ylogbj Hx Patient Social History Tobacco Use?: No Smoking Status: Former Smoker Smokeless Tobacco Frequency: Never a User Use of E-Cig and/or Vaping dev: No Use of E-Cig and/or Vaping Kvng: Never a User Substance use?: No Alcohol Use?: No Pt feels they are or have been: No Immunizations Up To Date Tetanus Booster (TDap): Unknown Current Status status: No status: No Advance Directives: No Advance Directive Location: Home Communicates: Verbally Primary Language: [place] Preferred Spoken Language: [place] Is interpretation needed?: No Implanted or Applied Medical D: None Past Medical History Surgeries: Tubal Ligation Headaches /Migraines Family Medical History Reviewed Nursing Family Hx No Pertinent Family Hx Review of Systems Constitutional: No chills, No fever EENTM: ear pain; No ear discharge, No hearing loss, No throat pain Respiratory: cough; No short of breath Cardiovascular: no symptoms reported Gastrointestinal: No abdominal pain, No constipation, No diarrhea; nausea, vomiting Genitourinary: no symptoms reported Musculoskeletal: no symptoms reported Skin: no symptoms reported Psychiatric/Neurological: See HPI Physical Exam Physical Exam Vital Signs Vital Signs - First Documented 11/19/21 11/19/21 10:30 19:17 Temp 35.1 Pulse 75 Resp 16 B/P (MAP) 139/72 (94) Pulse Ox 94 O2 Delivery Room Air Capillary Refill : Less Than 3 Seconds Height, Weight, BMI Height: '" Weight: lbs. oz. kg; 19.78 BMI Method: General Appearance: No Apparent Distress, WD/WN HEENT: PERRL/EOMI, Moist Mucous Membranes; No Scleral Icterus (L), No Scleral Icterus (R); Other (horizontal nystagmus when tracking to the left) Neck: Normal Inspection, Supple Respiratory: Lungs Clear, No Accessory Muscle Use, No Respiratory Distress Cardiovascular: Regular Rate, Rhythm, No Murmur Gastrointestinal: Normal Bowel Sounds, Non Tender Extremity: Normal Capillary Refill, No Calf Tenderness Neurologic/Psychiatric: Alert, Oriented x3, Normal Mood/Affect; No Aphasia, No Facial Droop Results Results/Procedures Labs Laboratory Tests 11/19/21 11:08 11/20/21 05:00 Patient resulted labs reviewed. Imaging: Reviewed Imaging Report Imaging [facility], [place] NAME: KEZIA BOLIVAR [facility] REC#: [id number] PT STATUS: REG ER : 1965 PHYSICIAN: OLENA PERRY MD ADMIT DATE: 11/19/21/ER Signed Date of Exam:11/19/21 CT ANGIO CHEST W EXAMINATION: CT angiography of the chest. TECHNIQUE: Contrast enhanced thin section helical images were obtained through the chest with intravenous contrast timed for the optimal opacification of the arterial structures per CTA protocol. Post-processing, reconstructions and interpretation of angiographic images of the vessels was performed. 3D MIP reconstructions were performed and reviewed. All CT scans use one or more of the following dose optimizing techniques: Automated exposure control, MA and/or KvP adjustment based on a patient size and exam type, or iterative reconstruction. HISTORY: Shortness of breath and chest pain. COMPARISON: None available. FINDINGS: There is no pulmonary embolism. There is no edema or pneumonia. No pleural effusion. No pneumothorax. No suspicious nodules. Lungs are severely emphysematous. There is no axillary or supraclavicular lymphadenopathy. There is no mediastinal lymphadenopathy. Heart size is normal. There are mild coronary artery calcifications. No pericardial effusion. Aorta is normal in caliber. Limited views of the upper abdomen are unremarkable. There are no suspicious osseous lesions. IMPRESSION: 1. No pulmonary embolism. Dictated by: Dictated on workstation # [id number] Dict: 11/19/21 1412 Trans: 11/19/211657 [id number] Interpreted by: AISHA PETERSON MD Electronically signed by: AISHA PETERSON MD 11/19/21 1658 [facility], [place] NAME: KEZIA BOLIVAR [facility] REC#: [id number] PT STATUS: REG ER : 1965 PHYSICIAN: OLENA PERRY MD ADMIT DATE: 11/19/21/ER Signed Date of Exam:11/19/21 CT ANGIO HEAD/NECK PROCEDURE: CT angiography of the head and CT angiography of the neck with and without contrast. TECHNIQUE: Contiguous noncontrast images were obtained from the skull base through the vertex. After intravenous contrast administration, helical CT angiography of the neck was performed. Source data was reformatted into 3D MIP projections. Delayed post contrast acquisition was also obtained. Auto Exposure Controls were utilized during the CT exam to meet ALARA standards for radiation dose reduction. INDICATION: Headache and dizziness. Noncontrast CT of the head demonstrates some residual intravascular contrast in the patient's prior CTA of the chest. There are no findings of acute intracranial hemorrhage. There is no intracranial mass effect or shift. There is no hydrocephalus. There are no findings of territorial loss of flores-white differentiation or vasogenic edema. The basilar cisterns are patent. Posterior fossa appears unremarkable. The mastoid air cells appear clear. The paranasal sinuses are clear. The orbital contents are unremarkable. The CT angiogram demonstrates no findings of aortic arch dissection. There is mild plaquing within the aortic arch with mild narrowing at the origin of the left subclavian. There is no high-grade stenosis at the origins of vessels arising from the aortic arch. The vertebral artery origins are also patent. Common carotid arteries demonstrate no significant stenosis. There is no stenosis at the carotid bifurcations by NASCET criteria. Cervical segment of the internal carotid arteries are widely patent without luminal irregularity or stenosis. The vertebral arteries throughout the neck also appear widely patent. There is no caliber change or dissection. Intracranially there is appropriate flow within the bilateral internal carotid arteries with patent flow to the carotid terminus. There is normal flow within the M1 segment of the middle cerebral arteries with no findings of an M2 branch occlusion. The anterior cerebral arteries appear patent. Within the posterior circulation both of the vertebral arteries are patent. There are patent bilateral posterior inferior cerebellar arteries. The basilar is patent. There is flow within the superior cerebellar artery. The left [employer] is unremarkable. There is a origin of the right [employer]. There are no findings of intracranial aneurysm formation. The dural venous sinuses appear patent. Postcontrast CT of the head demonstrates no evidence of pathologic intracranial enhancement. The soft tissues of the neck demonstrate no acute process. Lung apices demonstrate features of centrilobular and paraseptal emphysema. There are degenerative features within the cervical spine without findings of an acute or suspicious osseous abnormality. IMPRESSION: 1. No CT evidence of an acute intracranial abnormality. 2. No findings of intracranial large vessel occlusion or high-grade intracranial stenosis. 3. No findings of intracranial aneurysm formation. 4. The dural venous sinuses are patent. 5. No pathologic intracranial enhancement. 6. No significant stenosis or dissection within the neck. 7. Pulmonary emphysema. Dictated by: Dictated on workstation # [id number] Dict: 11/19/21 1646 Trans: 11/19/211841 CV [id number] Interpreted by: ADDIE RANDALL MD Electronically signed by: ADDIE RANDALL MD 11/19/211841 Assessment/Plan Admission Diagnosis Intractable Vertigo Admission Status: Observation Assessment and Plan Intractable Vertigo Concerning for acute vestibular neuritis Will start steroids Continue meclizine and antiemetics PT consulted Hopefully home tomorrow if feeling better Clinical Quality Measures AMI/AHF: ASA po Prior to arrival: LEOBARDO Boo MD Nov 20, 2021 10:55
[2021-11-20 11:03] VITALS: BP 112/56
[2021-11-20] MEDS: methylPREDNISolone 125 MG (Solu-MEDROL) VIAL IVP SCH ×2 (12:40→17:23)
[2021-11-20 16:42] VITALS: BP 125/60
[2021-11-20 20:26] VITALS: BP 129/60
[2021-11-21 00:27] VITALS: BP 119/59
[2021-11-21 04:05] VITALS: BP 105/60
[2021-11-21] MEDS: LACTATED RINGERS 1,000 ML IV SCH ×2 (05:06→13:37)
[2021-11-21] MEDS: methylPREDNISolone 125 MG (Solu-MEDROL) VIAL IVP SCH ×3 (05:06→11:44)
[2021-11-21 07:32] VITALS: BP 130/65
[2021-11-21 11:27] VITALS: BP 116/61
[2021-11-21] MEDS ORDERED: MECL-251 PO (13:07)
[2021-11-21] MEDS ORDERED: PRED10TA22 PO (13:07)
[2021-11-21 15:21] VITALS: BP 110/66
--- NOTE | 2021-11-21 21:01 | Discharge Summary ---
Discharge Summary Hospital Course Problems/Dx: (1) Vertigo Status: Acute (2) Migraine headache Status: Acute Hospital Course Date of Admission: Nov 19, 2021 at 18:22 Admission Diagnosis : Vertigo, migraine Family Physician/Provider: Alon Bolanos Physician Date of Discharge: 11/21/21 Discharge Diagnosis: Vertigo, migraine Hospital Course: Lashay Beltran is a 55 year old female who was admitted with vertigo. She was started on steroids for possible acute vestibular neuritis. She was also started on Antivert. Her symptoms improved. She was also treated for migraine headache. She was discharged home in stable condition. She plans to re-establish at the [facility]. Labs and Pending Lab Test: Home Meds Active Prednisone 10 Mg Tab.ds.pk 10 Mg PO DAILY Take 6 tabs(60mg)daily,decrease by 1 tab(10MG)daily. Antivert (Meclizine HCl) 25 Mg Tab.chew 25 Mg PO TID 7 Days Assessment/Pt Instructions See instructions Discharge Planning: >30 minutes discharge planning Discharge Instructions Discharge Diet: No Restrictions Activity as Tolerated: Yes Discharge Physical Examination Vital Signs Vital Signs Date Time Temp Pulse Resp B/P (MAP) Pulse Ox O2 Delivery O2 Flow Rate FiO2 11/21/21 15:21 36.7 67 18 110/66 94 Room Air 0.00 General Appearance: No Apparent Distress, WD/WN Respiratory: Lungs Clear, Normal Breath Sounds, No Respiratory Distress Cardiovascular: Regular Rate, Rhythm, No Edema, No Murmur Gastrointestinal: Normal Bowel Sounds, Non Tender, Soft Extremity: Normal Inspection, Non Tender, No Pedal Edema Skin: Normal Color, Warm/Dry Neurologic/Psychiatric: Alert, Normal Mood/Affect Allergies: Coded Allergies: Penicillins (Verified Allergy, Unknown, 11/18/21) morphine (Verified Allergy, Unknown, 11/18/21) Copy Copies To 1: [facility] Discharge Summary Date of Admission Nov 19, 2021 at 18:22 Date of Discharge Nov 21, 2021 at 15:23 Discharge Date: Nov 21, 2021 Discharge Time: 15:23 Admission Diagnosis Intractable Vertigo Discharge Diagnosis (1) Vertigo Status: Acute (2) Migraine headache Status: Acute Clinical Quality Measures AMI/AHF: ASA po Prior to arrival: ANDRES Núñez MD Nov 21, 2021 21:00
== END 2021-11-21 13:09 | disposition home or self-care (01) ==
LOC: EDUNIT# 10:27 → ER 10:29 → 4TH 18:22 → UNDOADMOB 18:22 → 4TH 19:30 → UNDODISOB 11-21 15:23
PROVIDERS: ADMIT Family Medicine; ATTEND Internal Medicine
DX: R42 Dizziness and giddiness (principal); G43.909 Migraine, unspecified, not intractable, without status migrainosus; Z87.891 Personal history of nicotine dependence
CPT/HCPCS: 70496; 70498; 71045; 71275; 80048; 80053; 80061; 81000; 83735; 83874; 84484; 85025; 85379; 85610; 85730; 87636; 93005; 93041; 96361 ×4; 96374; 96375 ×3; 96376 ×2; 99284; G0378; 36415